=== PATIENT | male | born 1965 | race Caucasian/White ===

== ENCOUNTER 2023-01-10 09:24 | Emergency (ER) | payer OTHER ==
--- NOTE | 2023-01-10 09:41 | ED Physician Documentation ---
PD HPI ABD PAIN - Stated complaint Stated Complaint: ABD PX - Chief complaint Chief Complaint: Abd Pain - History obtained from History obtained from: Patient - History of Present Illness Timing - onset: How many weeks ago (few weeks of intermittent mid abd pain, worse the past week. Intermittently hurting, brennon after activity. Feels protrusion at umbilical area at times. Tender in the area. No vomiting. Has had stool movements but taking laxatives for concern of constipation leading to symptoms.) Timing - duration: Minutes Timing - details: Intermittant Quality: Aching, Sharp, Pain Location: Periumbilical Radiation: No: Lower back, Left flank, Right flank Improved by: Laying still. No: Eating, BM Worsened by: Moving, Palpation. No: Eating Associated symptoms: Constipation (mildly). No: Fever, Nausea, Vomiting, Diarrhea, Melena, Hematochezia, Weight loss Similar symptoms before: Has not had sx before (has had inguinal hernia with similar character and pattern of the pain, but this is new symptoms at the umbilical area.) Review of Systems Constitutional: denies: Fever, Chills Nose: denies: Rhinorrhea / runny nose, Congestion Throat: denies: Sore throat Respiratory: denies: Cough GI: reports: Abdominal Pain, Nausea. denies: Vomiting, Diarrhea, Bloody / black stool : denies: Dysuria, Frequency Musculoskeletal: denies: Neck pain, Back pain Neurologic: denies: Near syncope PD PAST MEDICAL HISTORY - Past Medical History Cardiovascular: None Respiratory: None Endocrine/Autoimmune: None - Present Medications Home Medications: Ambulatory Orders Medication Instructions Recorded Confirmed Albuterol Sulfate [Proair 90 mcg IH Q6HR PRN 01/10/23 01/10/23 Digihaler] Azelastine HCl 137 mcg NS BID 01/10/23 01/10/23 Budesonide/Formoterol Fumarate 10.2 gm IH BID 01/10/23 01/10/23 [Symbicort 160-4.5 Mcg Inhaler] Fluticasone Propionate [Flovent 50 mcg IH BID 01/10/23 01/10/23 Diskus] Hydrocodone/Acetaminophen 1 each PO Q6HR PRN 01/10/23 01/10/23 [Hydrocodone-Acetamin 10-325 mg] Losartan [Cozaar] 50 mg PO DAILY 01/10/23 01/10/23 Omeprazole 20 mg PO BID 01/10/23 01/10/23 Phenytoin [Dilantin] 100 mg PO BID 01/10/23 01/10/23 traMADol [Ultram] 200 mg PO DAILY PRN 01/10/23 01/10/23 traZODone [Desyrel] 200 mg PO HS 01/10/23 01/10/23 - Allergies Allergies/Adverse Reactions: Allergies Allergy/AdvReac Type Severity Reaction Status Date / Time No Known Drug Allergies Allergy Verified 01/10/23 10:05 - Living Situation Living Situation: reports: Alone Living Arrangement: reports: At home PD ED PE NORMAL - Vitals Vital signs reviewed: Yes - General General: Alert and oriented X 3, No acute distress, Well developed/nourished - Cardiac Cardiac: RRR, No murmur - Respiratory Respiratory: Clear bilaterally - Abdomen Abdomen: Normal bowel sounds, Soft, Non distended, No organomegaly, Other (he is tender with small nonfirm lump at umbilicus when he tightens abd. It does hurt there when he does as well. No redness nor swelling of skin. Rest of abd not tender. ) - Male Male : Deferred - Rectal Rectal: Deferred - Back Back: No CVA TTP - Derm Derm: Normal color, No rash Results - Vitals Vitals: Vital Signs - 24 hr 01/10/23 01/10/23 01/10/23 09:29 11:22 12:23 Temperature 36.6 C 36.6 C Heart Rate 98 93 66 Respiratory 18 18 18 Rate Blood Pressure 131/85 H 131/94 H 132/87 H O2 Saturation 99 99 95 Oxygen O2 Source Room air - Labs Labs: Laboratory Tests 01/10/23 01/10/23 01/10/23 09:42 10:01 10:01 WBC 5.1 RBC 4.48 L Hgb 13.3 L Hct 40.7 L MCV 90.8 MCH 29.7 MCHC 32.7 RDW 12.8 Plt Count 232 MPV 9.0 Neut # (Auto) 3.8 Lymph # (Auto) 0.9 L Cameron # (Auto) 0.3 Eos # (Auto) 0.1 Baso # (Auto) 0.0 Absolute Nucleated RBC 0.00 Nucleated RBC % 0.0 Sodium 137 Potassium 3.8 Chloride 102 Carbon Dioxide 29 Anion Gap 6.0 BUN 12 Creatinine 1.3 H Estimated GFR (MDRD) 57 L Glucose 101 H Calcium 9.0 Total Bilirubin 0.3 AST 25 ALT 25 Alkaline Phosphatase 77 Total Protein 7.0 Albumin 4.3 Globulin 2.7 Albumin/Globulin Ratio 1.6 Lipase 45 Urine Color YELLOW Urine Clarity CLEAR Urine pH 7.0 Ur Specific [place] 1.010 Urine Protein NEGATIVE Urine Glucose (UA) NEGATIVE Urine Ketones NEGATIVE Urine Occult Blood NEGATIVE Urine Nitrite NEGATIVE Urine Bilirubin NEGATIVE Urine Urobilinogen 0.2 (NORMAL) Ur Leukocyte Esterase NEGATIVE Ur Microscopic Review NOT INDICATED Urine Culture Comments NOT INDICATED - Rads (name of study) abd/pelvic CT Relevant Findings:: Prelim report reviewed (small fat containing hernia at umbilicus. Otherwise unremarkable ct exam. ), EMP independent interpretation of test (normal amount of stool burden. Does not look excessive. No obstructive pattern. ), See rad report PD Medical Decision Making - ED course Complexity details: reviewed results (no other acute process noted. normal LFT labs and lipase. Therefore left with the likely cause of symptoms being the umbilical hernis intermittently imflamming or trapping. Does not sound like true incarceration episodes. However symptoms enough that should consider soon repair. ), considered differential (it does sound like he is having intermittent hernia pains at umbilicus. Consider reasons for it as potential intra-abdominal pressure, so need to eval for degree of s=constipation, signs of massess, obstruction, etc. ), d/w patient Reviewed Lab Results: His symptoms sound likely related to intermittent umbilical hernia. We can get a CT scan to ensure no other acute pathologies outs subsequently triggering the hernia. Also check urine and labs. A CT scan was performed with IV contrast. He does have history of some renal insufficiency but its been stable and with a good GFR recently so the option with contrast was done for better imaging. The CT scan showed a fat-containing umbilical hernia without any omental traction and no signs of obstruction. No other acute abnormalities were seen. His white count was evaluated and is in the normal range. Kidney function is adequate at 1.7 with a GFR of 57. Other electrolytes are within normal range. Urinalysis did not show any signs of infection or blood. At this point his symptoms do sound like intermittent pain related to an umbilical hernia. It does not sound like an obstructive pattern. We can refer him to general surgery. Given his history of renal insufficiency, he should not take any NSAIDs in the states he was told by his bilingual spanish inbound sales not to. He can use Tylenol if needed. He should stay well-hydrated. He can continue with fiber and stool softeners but the general stool burden on CT did not look excessive. He declined any opioid medicines as he states he does have hydrocodone at home if needed for other reasons. We will refer him to general surgery for evaluation of his umbilical hernia. Departure - Departure Disposition: Home, Self Care Clinical Impression: Intermittent periumbilical abdominal pain Condition: Stable Record reviewed to determine appropriate education?: Yes Instructions: ED Hernia Inguinal Follow-Up: Yanci Beaulieu MD [Provider Admit Priv/Credential] - Alcon Mayer MD [Provider Admit Priv/Credential] - [facility] [Provider Group] Comments: Your CT scan does show an umbilical hernia containing some fat tissue. No signs of involvement of the omentum or intestine and no signs of bowel obstruction. No other abnormality seen to account for the pain. At this point would assume it is the hernia intermittently trapping some fat tissue and causing the pains and protrusion at times. If you do have an episode of pain, you can try to relax and lay on your back and provide gentle pressure at the bellybutton area see if that helps. Meanwhile your general stool amount does not look excessive so I do not think constipation is causing your symptoms. However you would want to maintain some fiber and daily stool softener so you do not get bound up. Tylenol every 4-6 h ours if needed for pain or your other pain medicines at home if needed. Follow-up with general surgery to discuss repair of the hernia since it is giving you enough symptoms. I provided the name of 2 of the surgeons in [place] to give you options. You may need to get a referral through your primary care, Mr. Ramos at the [facility]. Check with the [facility] if you do need that. Return to the ER if you have significant pain, repetitive vomiting, distention of the abdomen or other concerns related to an episode. Forms: Activity restrictions Discharge Date/Time: 01/10/23 12:37
[2023-01-10] MEDS ORDERED: SODIUM CHLORIDE 0.9% 1,000 ML IV STA (10:03)
[2023-01-10 10:08] LABS: BASOPHILS % (AUTO) 0.8 %; EOSINOPHILS # (AUTO) 0.1 10^3/uL (0.0-0.7); EOSINOPHILS % (AUTO) 2.5 %; HCT - HEMATOCRIT 40.7 % (42.0-52.0); HGB - HEMOGLOBIN 13.3 g/dL (14.0-18.0); LYMPHOCYTES # (AUTO) 0.9 10^3/uL (1.5-3.5); LYMPHOCYTES % (AUTO) 17.3 %; MEAN CORPUSCULAR HEMOGLOBIN 29.7 pg (27.0-31.0); MEAN CORPUSCULAR HGB CONC 32.7 g/dL (32.0-36.0); MEAN CORPUSCULAR VOLUME 90.8 fL (80.0-94.0); MONOCYTES # (AUTO) 0.3 10^3/uL (0.0-1.0); MONOCYTES % (AUTO) 5.7 %; NEUTROPHILS # (AUTO) 3.8 10^3/uL (1.5-6.6); NEUTROPHILS % (AUTO) 73.7 %; PLT - PLATELET COUNT 232 10^3/uL (130-450); RED BLOOD COUNT 4.48 10^6/uL (4.70-6.10); RED CELL DISTRIBUTION WIDTH 12.8 % (12.0-15.0); WHITE BLOOD COUNT 5.1 x10^3/uL (4.8-10.8)
[2023-01-10 10:14] LABS: BILIRUBIN,URINE NEGATIVE (NEGATIVE); GLUCOSE, URINE (UA) NEGATIVE (NEGATIVE); KETONES,URINE (UA) NEGATIVE (NEGATIVE); LEUKOCYTE ESTERASE, URINE NEGATIVE (NEGATIVE); NITRITE,URINE NEGATIVE (NEGATIVE); OCCULT BLOOD,URINE NEGATIVE (NEGATIVE); PROTEIN,URINE NEGATIVE (NEGATIVE); UROBILINOGEN,URINE 0.2 (NORMAL) E.U./dL (NORMAL)
[2023-01-10 10:16] LABS: CLARITY,URINE CLEAR (CLEAR)
[2023-01-10 10:21] LABS: ALBUMIN 4.3 g/dL (3.2-5.5); ALBUMIN/GLOBULIN RATIO 1.6 (1.0-2.2); BILIRUBIN,TOTAL 0.3 mg/dL (0.2-1.0); CREATININE 1.3 mg/dL (0.6-1.2); POTASSIUM 3.8 mmol/L (3.5-5.0)
[2023-01-10] MEDS ORDERED: iohexoL-300 100 ML VIAL ONE (10:50)
[2023-01-10] MEDS ORDERED: iohexoL-300 100 ML VIAL IVP ONE (11:17)
--- NOTE | 2023-01-10 11:36 | CT Report ---
PROCEDURE: ABDOMEN/PELVIS W INDICATIONS: Abdominal pain, acute, periumbilical CONTRAST: 100ml Omnipaque 300 TECHNIQUE: After the administration of intravenous contrast, 5 mm thick sections acquired from the diaphragms to the symphysis. 5 mm thick coronal and sagittal reformats were acquired. For radiation dose reducti on, the following was used: automated exposure control, adjustment of mA and/or kV according to don ent size. COMPARISON: None. FINDINGS: Image quality: Excellent. Lung bases and heart: Emphysematous change. No pleural effusion. Liver: No focal lesion. Gallbladder and biliary tree: Unremarkable. Spleen: Unremarkable. Pancreas: Unremarkable. Adrenals: Unremarkable. Kidneys: No hydronephrosis. Small low-density left renal cyst. Bowel and peritoneum: No bowel distension. A few colonic diverticuli. Normal appendix. No pathologic free fluid. Lymph nodes: No central or retroperitoneal adenopathy. Vessels: No aneurysm. Moderate plaque. Tiny fat-containing umbilical hernia. No fluid collection. PELVIS Reproductive organs: Suspect hydroceles. Bladder and ureters: Unremarkable. Lymph nodes: Unremarkable. Bones: No aggressive osseous abnormality. IMPRESSION: No acute inflammatory process is identified. No free fluid. Tiny fat-containing umbilical hernia. Reviewed by: Kobe De Santiago MD on 01/10/2023 11:35 AM PDT Approved by: Kobe De Santiago MD on 01/10/2023 11:35 AM PDT Station ID: [id number]
[2023-01-10 12:23] VITALS: BP 132/87
== END 2023-01-10 12:37 | disposition home or self-care (01) ==
LOC: ED 09:24
DX: R10.33 Periumbilical pain (principal)
CPT/HCPCS: 36415; 74177; 80053; 81003; 83690; 85025; 99283; 99284; Q9967; 81001; 87086